=== PATIENT | male | born 1955 | race Caucasian/White ===

== ENCOUNTER → 2018-01-11 | Emergency (ER) | payer OTHER ==
[~2018-01-11] VITALS: Ht 188 cm; Wt 124.7 kg
[~2018-01-11] MED LIST: COLCRYS0.6 MG PO; INDOMETHACIN75 MG PO
== END | disposition home or self-care (01) ==
LOC: ER 03:20
DX: M10.071 Idiopathic gout, right ankle and foot (principal); S83.92XA Sprain of unspecified site of left knee, initial encounter; X50.3XXA Overexertion from repetitive movements, initial encounter; Y93.89 Activity, other specified; Y92.89 Other specified places as the place of occurrence of the external cause; Y99.8 Other external cause status